=== PATIENT | female | born 1995 | race Caucasian/White ===

== ENCOUNTER 2018-03-30 21:55 | Emergency (ER) | payer OTHER ==
[2018-03-30 22:05] VITALS: BP 135/95; PULSE 85; TEMP 98.6; BMI 20.9
[2018-03-30 22:56] LABS: BASO % 0.2 % (0-2.0); EOS % 1.6 % (0-4.5); HEMATOCRIT 35.5 % (32.4-45.2); HEMOGLOBIN 12.2 GM/dL (10.7-15.3); LYMPH % 20.8 % (8-40); MCHC 34.4 g/dl (32.0-36.0); MEAN CELL VOLUME 84.3 fl (80-96); MEAN PLT VOLUME 7.7 fl (7.5-11.1); MONO % 7.6 % (3.8-10.2); NEUT % 69.8 % (42.8-82.8); PLATELET COUNT 291 K/MM3 (134-434); RBC 4.21 M/mm3 (3.60-5.2); RDW 15.9 % (11.6-15.6); WHITE BLOOD COUNT 10.3 K/mm3 (4.0-10.0)
[2018-03-30 23:15] LABS: URINE APPEARANCE CLEAR; URINE BILIRUBIN NEGATIVE (<2.0 mg/dL); URINE COLOR COLORLESS; URINE GLUCOSE (UA) NEGATIVE (NEGATIVE); URINE KETONE NEGATIVE (NEGATIVE); URINE LEUK ESTERASE NEGATIVE (NEGATIVE); URINE NITRITE NEGATIVE (NEGATIVE); URINE PROTEIN NEGATIVE (NEGATIVE); URINE UROBILINOGEN NEGATIVE mg/dL (0.2-1.0)
[2018-03-30 23:18] LABS: ALBUMIN 3.6 g/dl (3.4-5.0); ANION GAP 7 (8-16); BILIRUBIN,TOTAL 0.1 mg/dL (0.2-1.0); BLOOD UREA NITROGEN 5 mg/dL (7-18); CALCIUM 8.8 mg/dL (8.5-10.1); CHLORIDE 108 mmol/L (98-107); CO2 23 mmol/L (21-32); CREATININE 0.4 mg/dL (0.55-1.02); GLUCOSE,RANDOM 94 mg/dL (74-106); SGOT/AST 13 U/L (15-37); SGPT/ALT 21 U/L (12-78); SODIUM 138 mmol/L (136-145); TOT PROT 7.2 g/dl (6.4-8.2)
[2018-03-30 23:22] LABS: EPI CELLS RARE /HPF (FEW); URINE BACTERIA RARE /hpf (NONE SEEN)
[2018-03-30 23:33] LABS: ALK PHOS 52 U/L (45-117)
--- NOTE | 2018-03-30 23:59 | PDOC ---
Attending Attestation - HPI HPI: 03/31/18 00:00 The patient is a 22 year old 12 weeks female, with a significant past medical history of migraines, who presents to the emergency department with, vaginal spotting. As per patient, she fell one week ago and visited her OBGYN, whom updated her that the baby was fine. She reports today sudden onset vaginal spotting. Allergies: NKA Past surgical history: None reported. Social history: Nonsmoker. Denies EtOH use and recreational drug use. Primary Care Physician: Dr. Yasmine Boss <Allan Cool - Last Filed: 03/30/18 23:59> - Resident Resident Name: Tee Orlando - ED Attending Attestation I have performed the following: I have examined & evaluated the patient, The case was reviewed & discussed with the resident, I agree w/resident's findings & plan, Exceptions are as noted - Physicial Exam PE: 03/31/18 00:30 Patient is awake and alert, well-appearing, in no distress Normocephalic, atraumatic PERRLA, EOMI CTA Abdomen is soft, nontender, nondistended, no guarding or rebound; Pelvic exam deferred at this time - Medical Decision Making 03/31/18 00:31 22-year-old female with history of migraines, 1 para 0, at approximately 12 gestation by LMP presents with mild vaginal spotting several days after a mechanical fall. Patient is hemodynamically stable with no abdominal tenderness to palpation on physical exam. Will obtain obstetrical ultrasound to confirm FH. Will reassess. Likely discharge. 03/31/18 01:08 Patient resting comfortably, with no acute issues at this time. Limited obstetrical ultrasound shows an IUP at 12 weeks 5 days with FH at 146 bpm. CBC/ CMP/UA within normal limit. Will discharge with DRY BOSS follow-up as needed. <Alvin Martines - Last Filed: 03/31/18 01:09> Attestations - Attestations 03/31/18 00:00 Documentation prepared by Allan Cool, acting as medical staff manager for Alvin Martines MD. <Allan Cool - Last Filed: 03/30/18 23:59>
--- NOTE | 2018-03-31 00:07 | PDOC ---
History of Present Illness - General History Source: Patient Exam Limitations: No Limitations - History of Present Illness Initial Comments: 03/30/18 23:26 22f g1po 12w lmp 01/04 present vaginal spotting and few clots as well as suprapubic cramping pain 30min before coming to Ed. She fell back 4 stairs one week ago, went to [facility] who told her everything was normal. OBGYN: Dr. Boss <Tee Orlando - Last Filed: 03/31/18 00:20> <Alvin Martines - Last Filed: 03/31/18 01:09> - General Chief Complaint: Vaginal Bleeding Stated Complaint: VAGINAL BLEEDING (12WKS ) Time Seen by Provider: 03/30/18 22:27 Past History - Past Medical History CVA: No COPD: No DVT: No Dementia: No Diabetes: No Dialysis: No GI Disorders: No - Reproductive History (#): 0 Para: 0 Cervical CA: No Dysfunctional Uterine Bleeding: No Ectopic : No Endometrial CA: No Polycystic Ovaries: No Tubal Ligation: No Spontaneous : 0 - Immunization History Td Vaccination: Yes Immunization Up to Date: Yes - Suicide/Smoking/Psychosocial Hx Smoking Status: No Smoking History: Never smoked Years of Tobacco Use: 0 Number of Cigarettes Smoked Daily: 0 Cigars Per Day: 0 Information on smoking cessation initiated: No Hx Alcohol Use: No Drug/Substance Use Hx: No Substance Use Type: None <Tee Orlando - Last Filed: 03/31/18 00:20> <Alvin Martines - Last Filed: 03/31/18 01:09> - Past Medical History Allergies/Adverse Reactions: Allergies Allergy/AdvReac Type Severity Reaction Status Date / Time No Known Allergies Allergy Verified 03/31/18 00:08 Home Medications: Ambulatory Orders No Home Medications 0 dose .ROUTE UTDICT 07/15/13 Review of Systems - Review of Systems Able to Perform ROS?: Yes Is the patient limited Polish proficient: No Constitutional: No: Symptoms Reported HEENTM: No: Symptoms Reported Respiratory: No: Symptoms reported Cardiac (ROS): No: Symptoms Reported ABD/GI: Yes: See HPI : No: Symptoms Reported Musculoskeletal: No: Symptoms Reported Integumentary: No: Symptoms Reported Neurological: No: Symptoms reported All Other Systems: Reviewed and Negative <Tee Orlando - Last Filed: 03/31/18 00:20> *Physical Exam - Vital Signs Last Vital Signs Temp Pulse Resp BP Pulse Ox 98.6 F 85 20 135/95 100 03/30/18 22:01 03/30/18 22:01 03/30/18 22:01 03/30/18 22:01 03/30/18 22:01 - Physical Exam General Appearance: Yes: Nourished, Appropriately Dressed. No: Apparent Distress HEENT: positive: EOMI, YEIMI, Normal ENT Inspection Respiratory/Chest: positive: Lungs Clear, Normal Breath Sounds. negative: Chest Tender, Respiratory Distress Cardiovascular: positive: Regular Rhythm, Regular Rate, S1, S2 Gastrointestinal/Abdominal: positive: Normal Bowel Sounds, Tender (suprapubic), Flat, Soft Musculoskeletal: positive: Normal Inspection. negative: CVA Tenderness Extremity: positive: Normal Capillary Refill, Normal Inspection, Normal Range of Motion <Tee Orlando - Last Filed: 03/31/18 00:20> - Vital Signs Last Vital Signs Temp Pulse Resp BP Pulse Ox 98.6 F 85 20 135/95 100 03/30/18 22:01 03/30/18 22:01 03/30/18 22:01 03/30/18 22:01 03/30/18 22:01 <Alvin Martines - Last Filed: 03/31/18 01:09> ED Treatment Course - LABORATORY CBC & Chemistry Diagram: 03/30/18 22:34 03/30/18 22:34 - ADDITIONAL ORDERS Additional order review: Laboratory Results 03/30/18 03/30/18 22:34 22:34 Sodium 138 Potassium 4.0 Chloride 108 H Carbon Dioxide 23 Anion Gap 7 L BUN 5 L Creatinine 0.4 L Creat Clearance w eGFR > 60 Random Glucose 94 Calcium 8.8 Total Bilirubin 0.1 L AST 13 L ALT 21 Total Protein 7.2 Albumin 3.6 Urine Color Colorless Urine Appearance Clear Urine pH 7.0 Ur Specific [place] 1.003 Urine Protein Negative Urine Glucose (UA) Negative Urine Ketones Negative Urine Blood 2+ H Urine Nitrite Negative Urine Bilirubin Negative Urine Urobilinogen Negative Ur Leukocyte Esterase Negative Urine WBC (Auto) <1 Urine RBC (Auto) <1 Ur Epithelial Cells Rare Urine Bacteria Rare 03/30/18 22:34 RBC 4.21 MCV 84.3 MCHC 34.4 RDW 15.9 H D MPV 7.7 Neutrophils % 69.8 Lymphocytes % 20.8 Monocytes % 7.6 Eosinophils % 1.6 D Basophils % 0.2 - RADIOLOGY Radiology Studies Ordered: Category Date Time Status TRANSVAGINAL US PREG [US] Stat Ultrasound 03/30/18 22:53 Ordered <Tee Orlando - Last Filed: 03/31/18 00:20> - LABORATORY CBC & Chemistry Diagram: 03/30/18 22:34 03/30/18 22:34 - ADDITIONAL ORDERS Additional order review: Laboratory Results 03/30/18 03/30/18 22:34 22:34 Sodium 138 Potassium 4.0 Chloride 108 H Carbon Dioxide 23 Anion Gap 7 L BUN 5 L Creatinine 0.4 L Creat Clearance w eGFR > 60 Random Glucose 94 Calcium 8.8 Total Bilirubin 0.1 L AST 13 L ALT 21 Alkaline Phosphatase 52 Total Protein 7.2 Albumin 3.6 Beta HCG, Quant 13156.5 Urine Color Colorless Urine Appearance Clear Urine pH 7.0 Ur Specific [place] 1.003 Urine Protein Negative Urine Glucose (UA) Negative Urine Ketones Negative Urine Blood 2+ H Urine Nitrite Negative Urine Bilirubin Negative Urine Urobilinogen Negative Ur Leukocyte Esterase Negative Urine WBC (Auto) <1 Urine RBC (Auto) <1 Ur Epithelial Cells Rare Urine Bacteria Rare 03/30/18 22:34 RBC 4.21 MCV 84.3 MCHC 34.4 RDW 15.9 H D MPV 7.7 Neutrophils % 69.8 Lymphocytes % 20.8 Monocytes % 7.6 Eosinophils % 1.6 D Basophils % 0.2 <Alvin Martines - Last Filed: 03/31/18 01:09> Medical Decision Making - Medical Decision Making 03/31/18 00:19 Labs, betahcg, TVUS <Tee Orlando - Last Filed: 03/31/18 00:20> *DC/Admit/Observation/Transfer <Tee Orlando - Last Filed: 03/31/18 00:20> <Alvin Martines - Last Filed: 03/31/18 01:09> Diagnosis at time of Disposition: Threatened in early - Discharge Dispostion Disposition: HOME Condition at time of disposition: Stable - Referrals Referrals: Yasmine Boss DO [Primary Care Provider] - - Patient Instructions Printed Discharge Instructions: DI for Threatened - Post Discharge Activity
== END 2018-03-31 01:20 | disposition home or self-care (01) ==
LOC: JER 21:55
DX: O26.891 Other specified pregnancy related conditions, first trimester (principal); O20.0 Threatened abortion; Z3A.12 12 weeks gestation of pregnancy
CPT/HCPCS: 36415; 76801-TC; 80053; 81003; 81015; 84702; 85025; 86850; 86900; 86901; 99282-25

== ENCOUNTER 2018-10-04 03:20 | Inpatient (IN) | payer OTHER ==
[2018-10-04] MEDS ORDERED: DEXTROSE 5%-LACTATED RINGERS 1,000 ML IV ONE (04:00)
[2018-10-04] MEDS ORDERED: DEXTROSE 5%-LACTATED RINGERS 500 ML IV ONE ×2 (04:00→04:30)
[2018-10-04 04:37] VITALS: BMI 26.3
[2018-10-04 05:13] LABS: ANION GAP 11 MMOL/L (8-16); BLOOD UREA NITROGEN 10 mg/dL (7-18); CHLORIDE 111 mmol/L (98-107); CO2 18 mmol/L (21-32); CREATININE 0.5 mg/dL (0.55-1.3); GLUCOSE,RANDOM 140 mg/dL (74-106); POTASSIUM 3.6 mmol/L (3.5-5.1); SODIUM 139 mmol/L (136-145)
[2018-10-04 05:27] LABS: INR 0.96 (0.83-1.09); PROTHROMBIN TIME (PATIENT) 11.3 SEC (9.7-13.0)
[2018-10-04 05:28] LABS: BASO % 0.2 % (0-2.0); EOS % 0.5 % (0-4.5); HEMATOCRIT 37.5 % (32.4-45.2); LYMPH % 19.1 % (8-40); MCHC 34.6 g/dl (32.0-36.0); MEAN CELL VOLUME 92.4 fl (80-96); MEAN PLT VOLUME 10.1 fl (7.5-11.1); MONO % 6.7 % (3.8-10.2); NEUT % 73.5 % (42.8-82.8); PLATELET COUNT 166 K/MM3 (134-434); RBC 4.06 M/mm3 (3.60-5.2); RDW 14.1 % (11.6-15.6); WHITE BLOOD COUNT 10.4 K/mm3 (4.0-10.0)
[2018-10-04 05:30] LABS: ACTIVATED PTT 27.8 SECONDS (25.2-36.5)
[2018-10-04] MEDS ORDERED: ACETAMINOPHEN 325 MG TABLET (FP) PO PRN (06:01)
[2018-10-04] MEDS ORDERED: IBUPROFEN 600 MG TABLET (FP) PO PRN (06:01)
[2018-10-04] MEDS ORDERED: BISACODYL 10 MG SUPP.RECT RC PRN (06:01)
[2018-10-04] MEDS ORDERED: METHYLERGONOVINE MALEATE 0.2 MG/1 ML AMP IM PRN (06:01)
[2018-10-04] MEDS ORDERED: BENZOCAINE 20% 57 GM BOTTLE TP PRN (06:01)
[2018-10-04] MEDS ORDERED: WITCH HAZEL 50% (TUCKS) 40 PAD/JAR PAD TP PRN (06:01)
[2018-10-04] MEDS ORDERED: BENZOCAINE 28 GM HEMORRHOIDAL OINTMENT TP PRN (06:01)
--- NOTE | 2018-10-04 06:01 | HP ---
Past Medical History - Admission Chief Complaint: leaking fluid, contractions History of Present Illness: 22 y/o P0 female here at 39 weeks gestation here with c/o leaking fluid at 3am and contractions. Pt admitted to L&D. uncomplicated. GBS negative. +Fm. H/o HSV, has been on valtrex. History Source: Patient, Medical Record Limitations to Obtaining History: No Limitations - Past Medical History Cardiovascular: No: Aneurysm, HTN, HI Pulmonary: No: Asthma, COPD Gastrointestinal: No: GERD Hepatobiliary: No: Hepatitis B, Hepatitis C ...: 1 ...Para: 0 ...Term: 0 ...: 0 ...Spon : 0 ...Induced : 0 ...Multiple Gestation: 0 ...LMP: 01/04/18 ... Weeks Gestation by Dates: 39 ...EDC by Dates: 10/11/18 Infectious Disease: Yes: STD's (HSV2). No: HIV, MRSA Psych: No: Bipolar, Depression - Past Surgical History Past Surgical History: Yes: None Hx Myomectomy: No Hx Transabdominal Cerclage: No - Smoking History Smoking history: Never smoked Have you smoked in the past 12 months: No Aproximately how many cigarettes per day: 0 - Alcohol/Substance Use Hx Alcohol Use: Yes (OCCASSIONAL BEFORE ) - Social History ADL: Independent History of Recent Travel: No Home Medications - Allergies Allergies/Adverse Reactions: Allergies Allergy/AdvReac Type Severity Reaction Status Date / Time No Known Allergies Allergy Verified 03/31/18 00:08 - Home Medications Home Medications: Ambulatory Orders No Home Medications 0 dose .ROUTE UTDICT 07/15/13 Review of Systems - Review of Systems Constitutional: reports: No Symptoms Eyes: reports: No Symptoms HENT: reports: No Symptoms Neck: reports: No Symptoms Cardiovascular: reports: No Symptoms Respiratory: reports: No Symptoms Gastrointestinal: reports: No Symptoms Genitourinary: reports: Other (watery vaginal discharge). denies: Vaginal Bleeding Musculoskeletal: reports: No Symptoms Integumentary: reports: No Symptoms Neurological: reports: No Symptoms Endocrine: reports: No Symptoms Hematology/Lymphatic: reports: No Symptoms Psychiatric: reports: No Symptoms Physical Exam - Maternity Vital Signs: Vital Signs Temperature 98.2 F 10/04/18 05:00 Pulse Rate 74 10/04/18 05:00 Respiratory Rate 20 10/04/18 05:00 Blood Pressure 136/68 10/04/18 05:00 O2 Sat by Pulse Oximetry (%) Constitutional: Yes: Well Nourished, Calm, Mild Distress (due to contraction pain) Eyes: Yes: Conjunctiva Clear, EOM Intact HENT: Yes: Normocephalic Neck: Yes: Supple Cardiovascular: Yes: Regular Rate and Rhythm Lungs: Clear to auscultation Breast(s): Yes: WNL - Abdominal Exam/OB Fundal Height: 38 Number of Fetuses: Single Presentation: Vertex Contractions: Yes Regularity: Regular Intensity: Strong Category: I Accelerations: None Decelerations: None - Vaginal Exam/OB Dilatation (cm): 8 Effacement (%): 100 Presentation: Vertex/Position Station: 0 (exam per nursing staff) - Physical Exam Psychiatric: Yes: Alert, Oriented - Labs Lab Results: CBC, BMP 10/04/18 04:25 Hemorrhage Risk Assessment - Risk Factors Medium Risk Factors: Yes: None High Risk Factors: Yes: None Risk Score: 1 Risk Level: Medium Risk Problem List - Problems (1) Active labor at term Code(s): BTF2737 - (2) HSV-2 infection complicating Code(s): O98.519 - OTHER VIRAL DISEASES COMPLICATING , UNSP TRIMESTER; B00.9 - HERPESVIRAL INFECTION, UNSPECIFIED Assessment/Plan continue expectant management analgesia prn h/o HSV 2 , no lesions, on valtrex, to continue post anticipate
[2018-10-04] MEDS ORDERED: OXYTOCIN 20 UNITS in 0.9% NS 20 UNIT/1,000 ML INFUS.BAG IV SCH (06:15)
[2018-10-04] MEDS ORDERED: OXYTOCIN 20 UNITS in 0.9% NS 20 UNIT/1,000 ML INFUS.BAG IV ONE ×2 (06:30→08:57)
[2018-10-04] MEDS ORDERED: LIDOCAINE HCL 1% PRESERVATIVE FREE - 30ML VIAL ONE (06:31)
[2018-10-04] MEDS: PRENATAL VITAMINS W/ FOLIC ACID TABLET (FP) PO SCH (10:00)
[2018-10-04] MEDS ORDERED: TUBERCULIN PPD 5 TU/0.1ML SYRINGE (IN PATIENT USE ONLY) ID ONE (14:18)
--- NOTE | 2018-10-04 14:59 | PN ---
Delivery - Delivery Vaginal Delivery: No Problems Type of Anesthesia: Local Episiotomy/Laceration: 2nd degree EBL (cc): 300 Delivery, Single - Stages of Labor Date 1st Stage Initiatied: 10/04/18 Time 1st Stage Initiated: 03:45 Date 2nd Stage Initiated: 10/04/18 Time 2nd Stage Initiated: 06:30 Date of Delivery: 10/04/18 Time of Delivery: 06:48 Time Placenta Delivered: 07:00 Placenta: Yes: Spontaneous - Condition of Infant Manager Visual/Candles Pourer Present: No Infant Gender: Female Weight: 6 lb 12 oz Position: Left, OA Total Hours ROM (Hrs/Mins): 4hr - 1 Minute Total Score: 9 5 Minutes Total Score: 9 - Feeding Plan Initial Plan: Elected not to breastfeed exclusively throughout hospitalization Remarks - Remarks Remarks: Uncomplicated across 2nd degree laceration MANSI position loose nuchal cord noted after delivery of head, reduced at perineum anterior and posterior shoulders delivered with ease cord - 3vc - clamped and cut placenta delivered spontaneously and in tact 2nd degree repaired with 2-0 vicryl sponge and needle count correct
[2018-10-05 06:02] LABS: BASO % 0.1 % (0-2.0); EOS % 0.7 % (0-4.5); HEMATOCRIT 30.4 % (32.4-45.2); HEMOGLOBIN 10.8 GM/dL (10.7-15.3); LYMPH % 21.4 % (8-40); MCH 32.8 pg (25.7-33.7); MCHC 35.5 g/dl (32.0-36.0); MEAN CELL VOLUME 92.1 fl (80-96); MEAN PLT VOLUME 9.1 fl (7.5-11.1); MONO % 7.5 % (3.8-10.2); NEUT % 70.3 % (42.8-82.8); PLATELET COUNT 143 K/MM3 (134-434); RDW 14.3 % (11.6-15.6); WHITE BLOOD COUNT 11.4 K/mm3 (4.0-10.0)
--- NOTE | 2018-10-05 07:26 | PN ---
Post Note - Post Date of Delivery: 10/04/18 Vital Signs: Vital Signs - 24 hr 10/04/18 10/04/18 10/04/18 07:30 07:45 08:00 Temperature Pulse Rate 76 84 77 Respiratory 18 18 18 Rate Blood Pressure 121/82 129/78 134/82 O2 Sat by Pulse 100 100 100 Oximetry (%) 10/04/18 10/04/18 10/04/18 08:15 09:15 09:39 Temperature 98.5 F 99.5 F Pulse Rate 71 77 Respiratory 18 18 Rate Blood Pressure 128/78 126/78 O2 Sat by Pulse 100 100 Oximetry (%) 10/04/18 10/04/18 10/04/18 14:10 18:19 22:00 Temperature 99.2 F 99.2 F 98.7 F Pulse Rate 94 H 104 H 95 H Respiratory 18 18 18 Rate Blood Pressure 123/74 127/74 130/69 O2 Sat by Pulse Oximetry (%) 10/05/18 02:00 Temperature 98.8 F Pulse Rate 108 H Respiratory 18 Rate Blood Pressure 119/85 O2 Sat by Pulse Oximetry (%) Labs: Laboratory Results - last 24 hr 10/04/18 10/04/18 10/05/18 04:25 04:25 05:56 WBC 11.4 H RBC 3.30 L Hgb 10.8 Hct 30.4 L D MCV 92.1 MCH 32.8 MCHC 35.5 RDW 14.3 Plt Count 143 MPV 9.1 Absolute Neuts (auto) 8.0 Neutrophils % 70.3 Lymphocytes % 21.4 Monocytes % 7.5 Eosinophils % 0.7 Basophils % 0.1 Nucleated RBC % 0 RPR Titer Nonreactive Blood Type A POSITIVE Antibody Screen Negative - Subjective Subjective: No Complaints - Objective Afebrile: Yes Breast: Not engorged Abdomen: Soft, Non-tender Uterus: Fundus firm Vagina: Scant lochia Extremities: Non-tender - Assessment/Plan (1) Normal vaginal delivery Assessment: S/P Normal Plan: Routine Care
[2018-10-05] MEDS: PRENATAL VITAMINS W/ FOLIC ACID TABLET (FP) PO SCH (09:00)
[2018-10-05] MEDS ORDERED: DIPHTH,PERTUSS(ACELL),TET 0.5 ML DISP.SYRIN IM ONE (10:00)
[2018-10-05] MEDS ORDERED: SENNOSIDES/DOCUSATE COMBO (SENNA PLUS) TABLET (UD) PO PRN (22:00)
--- NOTE | 2018-10-06 10:23 | DS ---
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: Vital Signs Temperature 99.2 F 10/05/18 21:00 Pulse Rate 107 H 10/05/18 21:00 Respiratory Rate 20 10/05/18 21:00 Blood Pressure 126/74 10/05/18 21:00 O2 Sat by Pulse Oximetry (%) 100 10/04/18 09:15 Constitutional: Yes: Well Nourished, No Distress Neck: Yes: WNL Cardiovascular: Yes: WNL, Regular Rate and Rhythm Respiratory: Yes: WNL, Regular Gastrointestinal: Yes: WNL, Soft ....Post : Yes: Uterus firm, Uterus non-tender Breast(s): Yes: WNL Musculoskeletal: Yes: WNL Extremities: Yes: WNL Edema: No Neurological: Yes: WNL, Alert, Oriented Labs: CBC, BMP 10/05/18 05:56 10/04/18 04:25 Delivery - Delivery Vaginal Delivery: No Problems Type of Anesthesia: Local Episiotomy/Laceration: 2nd degree EBL (cc): 300 Delivery, Single - Stages of Labor Date 1st Stage Initiatied: 10/04/18 Time 1st Stage Initiated: 03:45 Date 2nd Stage Initiated: 10/04/18 Time 2nd Stage Initiated: 06:30 Date of Delivery: 10/04/18 Time of Delivery: 06:48 Time Placenta Delivered: 07:00 Placenta: Yes: Spontaneous - Condition of Infant Shaper Setter/Tromper Present: No Gender: Female Weight: 6 lb 12 oz Position: Left, OA Total Hours ROM (Hrs/Mins): 4hr - 1 Minute Total Score: 9 5 Minutes Total Score: 9 - [place] Feeding Plan Initial Plan: Elected not to breastfeed exclusively throughout hospitalization Discharge Summary Reason For Visit: ADMIT LABOR Current Active Problems Active labor at term (Acute) HSV-2 infection complicating (Acute) Normal vaginal delivery (Acute) Procedures: Principal: Normal vaginal Deliivery Condition: Good - Instructions Diet, Activity, Other Instructions: Physical activity Resume your normal everyday activity as tolerated no heavy lifting or exercise until seen by your surgeon. You may walk unlimited melony of and climb stairs. You may resume driving the car when you feel safe and comfortable behind the wheel. No sexual activity as instructed. Wound care If you have a bandage, leave it on, and keep dry for 48-72 hours. After that time discard the outer bandage. If they are tapes on the skin under the out of bandage leave them in place. They will peel off in the next 7 to 10 days. Do Not Peel them off. You may shower the day after surgery. If there are tapes present on the skin, you may shower over them. Diet There are no dietary restrictions. Eat healthy, high-fiber foods. Drink 6 to 8 glasses of liquid each day. This will assist in keeping your bowels are regular. Pain management You may take Tylenol or acetaminophen or Ibuprofen (for example, Motrin, Advil etc.) from my pain prescription medication is ordered should be taken as prescribed for moderate to severe pain. Call MD for any of the following: Severe pain not relieved by medication Fever of 101 or higher Excessive bleeding or drainage on dressing Inability to urinate Disposition: HOME - Home Medications Comprehensive Discharge Medication List: Ambulatory Orders Acyclovir [Zovirax -] 800 mg PO DAILY 10/04/18 Vitamins (Sjr) - 1 tab PO DAILY 10/04/18 Ibuprofen [Motrin -] 600 mg PO QID #28 tablet 10/06/18
[2018-10-06] MEDS ORDERED: BISACODYL 10 MG SUPP.RECT RC ONE (10:29)
[2018-10-06] MEDS: PRENATAL VITAMINS W/ FOLIC ACID TABLET (FP) PO SCH (10:42)
[2018-10-06 12:10] VITALS: BP 122/72; PULSE 93; TEMP 98.4
== END 2018-10-06 13:40 | disposition home or self-care (01) | DRG 560 ==
LOC: JDEL 03:20 → JLDR 04:00 → J3W 09:10
PROVIDERS: ADMIT Obstetrics & Gynecology; ATTEND Obstetrics & Gynecology
PROC: 0KQM0ZZ Repair Perineum Muscle, Open Approach (ICD-10-PCS; principal; 2018-10-04)
PROC: 10E0XZZ Delivery of Products of Conception, External Approach (ICD-10-PCS; 2018-10-04)
DX: O98.52 Other viral diseases complicating childbirth (principal); B00.9 Herpesviral infection, unspecified; O70.1 Second degree perineal laceration during delivery; O69.81X0 Labor and delivery complicated by cord around neck, without compression, not applicable or unspecified; Z3A.39 39 weeks gestation of pregnancy; Z37.0 Single live birth
CPT/HCPCS: 36415; 59409; 80048; 85025; 85610; 85730; 86593; 86850; 86900; 86901; 90715

== ENCOUNTER 2022-04-29 19:48 | Emergency (ER) | payer OTHER ==
[2022-04-29 20:05] VITALS: BP 132/88; PULSE 100; RESP 20; TEMP 98.1; BMI 27.4
[2022-04-29] MEDS ORDERED: IBUPROFEN 600 MG TABLET (FP) PO ONE (20:47)
[2022-04-29] MEDS ORDERED: METHOCARBAMOL 500 MG TABLET PO ONE (20:47)
[2022-04-29] MEDS ORDERED: METHOCARBAMOL 500 MG TABLET ONE (21:46)
== END 2022-04-29 22:05 | disposition home or self-care (01) ==
LOC: JERFT 19:48
DX: M54.2 Cervicalgia (principal); V87.7XXA Person injured in collision between other specified motor vehicles (traffic), initial encounter; Y92.9 Unspecified place or not applicable
CPT/HCPCS: 99283-25

== ENCOUNTER 2022-07-26 16:41 | Emergency (ER) | payer OTHER ==
[2022-07-26 17:06] VITALS: BP 133/76; PULSE 116; RESP 20; TEMP 99.6; BMI 26.8
[2022-07-26] MEDS ORDERED: predniSONE 20 MG TABLET (UD) PO ONE (19:22)
[2022-07-26] MEDS ORDERED: ACETAMINOPHEN 500 MG TABLET (FP) PO ONE (19:23)
[2022-07-26] MEDS ORDERED: ACETAMINOPHEN 500 MG TABLET (FP) ONE (19:29)
[2022-07-26] MEDS ORDERED: predniSONE 20 MG TABLET (UD) ONE (19:29)
== END 2022-07-26 20:30 | disposition home or self-care (01) ==
LOC: JER 16:41
DX: J09.X2 Influenza due to identified novel influenza A virus with other respiratory manifestations (principal); R05.1 Acute cough; J45.20 Mild intermittent asthma, uncomplicated
CPT/HCPCS: 0241U-QW; 99283-25